=== PATIENT | female | born 1965 | race Caucasian/White ===

== ENCOUNTER → 2016-05-22 | Outpatient (CLI) | payer OTHER ==
[2014-05-31 15:05] VITALS: BP 95/58
[~2016-05-22] MED LIST: ALPR0.25 PO; ASPI325T4 PO; ATOR20TA58 PO; LEVO50TA5 PO; OXYC-250 PO
[2016-05-22 16:44] LABS: BARBITURATES NEG (NEG); BENZODIAZEPINES NEG (NEG); CANNABINOIDS NEG (NEG); COCAINE NEG (NEG); METHADONE NEG (NEG); OPIATES POS (NEG); PHENCYCLIDINE NEG (NEG)
[2016-05-22 16:55] LABS: ETHANOL, URINE NEG (NEG)
[2016-05-22 17:07] LABS: CREATININE 0.9 mg/dL (0.6-1.0); GFR 66.3
== END | disposition home or self-care (01) ==
LOC: LAB 15:42
PROVIDERS: ATTEND Psychiatry & Neurology Neurology
DX: R20.2 Paresthesia of skin (principal)
CPT/HCPCS: 36415; 82550; 82565; 82947; 84443; 84520; 85651; G0481

== ENCOUNTER → 2016-07-04 | Outpatient (CLI) | payer OTHER ==
[2014-05-31 15:05] VITALS: BP 95/58
[~2016-07-04] MED LIST changes: +GADOBUTROL 7.5 MMOL/7.5 ML VIAL IV ONE
--- NOTE | 2016-07-04 11:34 | KCIC ---
PROCEDURE MRI abdomen with and without contrast. HISTORY Dilated common bile. Epigastric pain. TECHNIQUE MRI of the abdomen was performed for and after the intravenous administration of 5 milliliters Gadavist. Three-dimensional reconstructions of the biliary tree were performed. COMPARISON 06/25/2016. FINDINGS Nodules in the right lung base correspond with calcified granulomas and inflammatory change on prior CT. There are scattered small cysts in the kidneys. The spleen is not enlarged. The adrenal glands are not enlarged. There are scattered tiny arterially enhancing foci throughout the liver. These measure 5 millimeters or less. These are not seen on the later series or on T2. The scattered regions of vascular shunting are favored. There are no definitively suspicious hepatic lesions. The gallbladder is distended without surrounding inflammation. The common duct is dilated to 12 millimeters. It tapers at the ampulla with adequate distal obstructing lesion. The pancreatic duct is mildly dilated at 4 millimeters. There are no pancreatic parenchymal lesions. Stool throughout the colon is consistent with constipation. IMPRESSION - Many subcentimeter foci of arterial enhancement scattered throughout the liver are not seen on later series and most likely represent only small regions of vascular shunting. Benignity is strongly favored in the absence of known malignancy. A follow-up could be performed in 3-6 months if there is further concern. - Moderate extrahepatic biliary dilatation without a clear distal obstructing lesion. The distal pancreatic duct is mildly dilated. ERCP could assess for ampullary stenosis or tiny ampullary lesion. - Correlate for constipation. Electronically signed by: Douglas Logan (Jul 04, 2016 11:32:09)
== END | disposition home or self-care (01) ==
LOC: KCIC MRI 08:20
PROVIDERS: ATTEND Internal Medicine Gastroenterology
DX: K83.8 Other specified diseases of biliary tract (principal); R93.0 Abnormal findings on diagnostic imaging of skull and head, not elsewhere classified; R10.13 Epigastric pain
CPT/HCPCS: 74182; A9585

== ENCOUNTER → 2016-07-22 | Outpatient (CLI) | payer OTHER ==
[2014-05-31 15:05] VITALS: BP 95/58
[~2016-07-22] VITALS: Ht 165.1 cm; Wt 53.5 kg
[~2016-07-22] MED LIST changes: -GADOBUTROL 7.5 MMOL/7.5 ML VIAL IV ONE; +NORMAL SALINE IV ONE; +SINCALIDE IV ONE
--- NOTE | 2016-07-22 11:49 | RAD ---
EXAM: Nuclear hepatobiliary scan with ejection fraction. HISTORY: Abdominal pain/nausea. TECHNIQUE: Serial static images are obtained of the liver and biliary system in a frontal projection following IV administration of 5.5 mCi of technetium-99m Choletec. After filling of the gallbladder, 1.1 mcg of sincalide were infused over 30 minutes and dynamic imaging continued over this period. The gallbladder ejection fraction was calculated. FINDINGS: There is prompt hepatic clearance of tracer from the blood pool. There is homogeneous distribution throughout the liver. There is filling of the gallbladder and normal into the biliary system and small bowel. The common duct and intrahepatic biliary tree appear prominent consistent with biliary dilatation is seen on prior MRCP. The gallbladder ejection fraction is 25.8% (normal >35%). IMPRESSION: 1. Decreased gallbladder ejection fraction consistent with biliary dyskinesia. 2. Biliary dilatation is seen on prior MRCP.
== END | disposition home or self-care (01) ==
LOC: NM 06:53
PROVIDERS: ATTEND Internal Medicine Gastroenterology
DX: R10.9 Unspecified abdominal pain (principal); Z79.01 Long term (current) use of anticoagulants
CPT/HCPCS: 78226; 96374; 96375; A9537; J2805

== ENCOUNTER → 2017-02-24 | Outpatient (CLI) | payer OTHER ==
[2014-05-31 15:05] VITALS: BP 95/58
[~2017-02-24] MED LIST changes: -ASPI325T4 PO; +ASPI325T8 PO; +IOHEXOL 300 MG/ML 75 ML VIAL IV ONE; -NORMAL SALINE IV ONE; -OXYC-250 PO; +OXYC-328 PO; -SINCALIDE IV ONE
--- NOTE | 2017-02-24 09:17 | RAD ---
Indication liver lesions. Contrast imaging through the abdomen was performed. Oral contrast was not administered. IV contrast, approximately 75 cc of Omnipaque 300 was administered. Note is made of a previous examination 06/25/2016. Note is made of an MRCP 07/04/2016 and a hepatobiliary scan 07/22/2016. Interval cholecystectomy additionally noted. The lung bases are clear. No focal mass lesion or hepatic abnormality is seen. There is slight prominence of biliary radicles which is likely secondary to the postcholecystectomy state. Splenic granulomas are noted. There are tiny renal cysts. No adrenal pathology is seen. No pancreatic pathology is seen. No focal mass inflammatory process or acute finding in the abdomen is seen. Degenerative changes at L5-S1 are noted IMPRESSION: No acute finding seen in the abdomen. No hepatic pathology seen PQRS Compliance Statement: One or more of the following individualized dose reduction techniques were utilized for this examination: 1. Automated exposure control 2. Adjustment of the mA and/or kV according to patient size 3. Use of iterative reconstruction technique
== END | disposition home or self-care (01) ==
LOC: CT 08:41
PROVIDERS: ATTEND Family Medicine
DX: K76.89 Other specified diseases of liver (principal); K75.3 Granulomatous hepatitis, not elsewhere classified; I10 Essential (primary) hypertension; Z79.01 Long term (current) use of anticoagulants; Z87.891 Personal history of nicotine dependence
CPT/HCPCS: 74160; Q9967

== ENCOUNTER → 2018-09-03 | Outpatient (CLI) | payer OTHER ==
[2014-05-31 15:05] VITALS: BP 95/58
[~2018-09-03] MED LIST changes: -IOHEXOL 300 MG/ML 75 ML VIAL IV ONE; -OXYC-328 PO; +OXYC1TAB22 PO
[2018-09-03 15:41] LABS: BASO # 0.1 x10^3/uL (0.0-0.2); BASO % 1 % (0-3); EOS # 0.2 x10^3/uL (0.0-0.7); EOS % 3 % (0-3); HEMATOCRIT 44.4 % (36.0-47.0); HEMOGLOBIN 14.4 g/dL (12.0-15.5); LYMPH % 38 % (24-48); MEAN CORPUSCULAR HEMOGLOBIN 31 pg (25-35); MEAN CORPUSCULAR HGB CONC 32 g/dL (31-37); MEAN CORPUSCULAR VOLUME 96 fL (79-100); MONO # 0.5 x10^3/uL (0.0-1.1); MONO % 6 % (0-9); NEUT # 4.1 x10^3uL (1.8-7.7); NEUT % 52 % (31-73); PLATELET COUNT 179 x10^3/uL (140-400); RED BLOOD COUNT 4.63 x10^6/uL (3.50-5.40); RED CELL DISTRIBUTION WIDTH 16.2 % (11.5-14.5); WHITE BLOOD COUNT 7.9 x10^3/uL (4.0-11.0)
[2018-09-03 15:50] LABS: ALBUMIN 3.8 g/dL (3.4-5.0); ALBUMIN/GLOBULIN RATIO 1.1 (1.0-1.7); GFR 58.2; TOTAL BILIRUBIN 0.4 mg/dL (0.2-1.0); TOTAL PROTEIN 7.2 g/dL (6.4-8.2)
== END | disposition home or self-care (01) ==
LOC: LAB 15:08
PROVIDERS: ATTEND Psychiatry & Neurology Neurology
DX: G43.011 Migraine without aura, intractable, with status migrainosus (principal)
CPT/HCPCS: 36415; 80053; 85025; 85651

== ENCOUNTER → 2020-07-25 | Outpatient (CLI) | payer OTHER ==
[2020-04-07 10:41] VITALS: BP 99/43
--- NOTE | 2020-07-26 13:26 | RAD ---
EXAM: Bilateral digital screening mammogram with tomosynthesis. HISTORY: 55-year-old female presents for screening mammography. TECHNIQUE: Full-field digital craniocaudal and mediolateral oblique 2D and 3D tomosynthesis images of both breasts are obtained for evaluation. Computer aided detection was applied. COMPARISON: Right breast mammogram dated 11/23/2015. There is no mammogram of the left breast for bin fuchs. BREAST PARENCHYMAL DENSITY: Level C - Heterogeneously dense. FINDINGS: There is a biopsy clip within the anterior 10:00 position of the right breast. There is cir cumscribed nodular densities within the 5:00 position of the right breast centered approximately 3.5 cm from the nipple. This may be more conspicuous compared to the prior study due to differences in im aging technique. There is nodular density within the posterior 2:00 position of the left breast cente red approximately 8.5 cm from the nipple. There is no suspicious calcific lesion or architectural dis tortion within either breast. IMPRESSION: BI-RADS Category 0: Incomplete. Additional imaging needed. RECOMMENDATION: Further evaluation with a full field true lateral and spot compression views of left breast to assess nodularity at the posterior 2:00 position is recommended. Sonographic imaging of the left breast may also be performed if deemed indicated based on additional mammographic findings. Sonographic imaging of the right breast is also recommended to assess nodularity at the 5:00 position approximately 3.5 cm from the nipple. If your mammogram demonstrates that you have dense breast tissue, which could hide abnormalities, and if you have other risk factors for breast cancer that have been identified, you might benefit from s upplemental screening tests that may be suggested by your ordering physician. Dense breast tissue, i n and of itself, is a relatively common condition. This information is not provided to cause undue c oncern, but rather to raise your awareness and to promote discussion with your physician regarding th e presence of other risk factors, in addition to dense breast tissue. A report of your mammography re sults will be sent to you and your physician. You should contact your physician if you have any ques tions or concerns regarding this report. Mammography is a sensitive method for finding small breast cancers, but it does not detect them all a nd is not a substitute for careful clinical examination. A negative mammogram does not negate a clin ically suspicious finding and should not result in delay in biopsying a clinically suspicious abnorma lity. PQRS compliance statement - Patient information was entered into a reminder system with a target due date for the next mammogram. "Our facility is accredited by the [employer] Mammography [employer]." Electronically signed by: Janeth Landeros MD (07/26/2020 1:23 PM) [id number]
== END ==
LOC: MAMMO 08:21
PROVIDERS: ATTEND Family Medicine
DX: Z12.31 Encounter for screening mammogram for malignant neoplasm of breast (principal); N64.89 Other specified disorders of breast
CPT/HCPCS: 77063; 77067

== ENCOUNTER → 2020-08-10 | Outpatient (CLI) | payer OTHER ==
[2020-04-07 10:41] VITALS: BP 99/43
--- NOTE | 2020-08-10 10:25 | RAD ---
Examination: 1. Left digital diagnostic mammogram. 2. Limited left breast ultrasound. INDICATION: 55-year-old woman recalled from screening for nodular density in the posterior left 2:00 position approximately 8.5 cm from the nipple. COMPARISON: Bilateral mammogram of 07/25/2020 TECHNIQUE: 2-D CC spot compression views of the left breast in addition to spot compression left MLO views. A full-field left ML view was also obtained. A full-field ML view was reviewed with computer-aided detection. Targeted ultrasound of the lateral left breast was also performed in the area of mammographic interest. FINDINGS: Heterogeneously dense breast parenchyma. The questioned nodularity changed configuration in a pattern compatible with overlap of dense fibroglandular tissue. Targeted ultrasound of the lateral breast shows dense fibroglandular tissue with no suspicious masses or definite sonographic correlate to the area of nodularity. [employer] images were acquired at the left 2:00 position 8.5 cm from the nipple. Sonographic survey of the left axilla revealed no adenopathy or mass. IMPRESSION: Probably benign left breast fibroglandular tissue. Recommend six-month left diagnostic mammogram with possible ultrasound. BI-RADS Category 3 Probably benign findings Patient entered into a reminder system with target due date for next mammogram.
== END ==
LOC: MAMMO 09:07
PROVIDERS: ATTEND Family Medicine
DX: R92.8 Other abnormal and inconclusive findings on diagnostic imaging of breast (principal)
CPT/HCPCS: 76641; 77065

== ENCOUNTER → 2021-01-31 | Outpatient (CLI) | payer OTHER ==
[2020-04-07 10:41] VITALS: BP 99/43
--- NOTE | 2021-01-31 14:22 | RAD ---
EXAM: Left breast diagnostic mammogram with tomosynthesis; bilateral breast sonogram. HISTORY: 55-year-old female presents for follow-up evaluation of findings within both breasts demonst rate on a mammogram and sonogram performed 08/10/2020 and mammogram dated 07/25/2020. TECHNIQUE: Full-field digital craniocaudal and mediolateral oblique 2D and 3D tomosynthesis images of the left breast are obtained for evaluation. Computer aided detection was applied. Sonographic imagi ng of both breasts targeted to sites of mammographic findings was also performed. COMPARISON: 08/10/2020, 07/25/2020 BREAST PARENCHYMAL DENSITY: Level C - Heterogeneously dense. FINDINGS: The previously demonstrated asymmetry within the posterior 2:00 position of the left breast is slightly less conspicuous compared to the prior exam. There are additional areas of asymmetry and nodularity which are stable in appearance. There is no suspicious calcification or architectural dis tortion. Sonographic imaging of the left breast demonstrates no suspicious finding within the posterior 2:00 p osition to correspond with the region of nodular asymmetry. This favors a benign etiology such as an island of benign 5 glandular tissue. There are benign left axillary lymph nodes. Sonographic imaging of the right breast demonstrates a 5 mm circumscribed hypoechoic lesion at the 6: 00 position 3.5 cm from the nipple, likely corresponding with a similar sized circumscribed nodular d ensity at the 5:00 position demonstrated mammographically. The imaging appearance favors a complicate d cyst, fibroadenoma or lymph node. No additional lesion is seen. IMPRESSION: 1. No new suspicious mammographic or sonographic finding within the left breast. 2. 5 mm benign-appearing lesion within the 6:00 position of the right breast 3.5 cm from the nipple. 3. BI-RADS Category 3: Probably benign finding(s). Short term follow up with a right breast sonogram and bilateral mammogram in 6 months is recommended. This follow up interval corresponds with a previo usly established bilateral mammography interval. If your mammogram demonstrates that you have dense breast tissue, which could hide abnormalities, and if you have other risk factors for breast cancer that have been identified, you might benefit from s upplemental screening tests that may be suggested by your ordering physician. Dense breast tissue, i n and of itself, is a relatively common condition. This information is not provided to cause undue c oncern, but rather to raise your awareness and to promote discussion with your physician regarding th e presence of other risk factors, in addition to dense breast tissue. A report of your mammography re sults will be sent to you and your physician. You should contact your physician if you have any ques tions or concerns regarding this report. Mammography is a sensitive method for finding small breast cancers, but it does not detect them all a nd is not a substitute for careful clinical examination. A negative mammogram does not negate a clin ically suspicious finding and should not result in delay in biopsying a clinically suspicious abnorma lity. PQRS compliance statement - Patient information was entered into a reminder system with a target due date for the next mammogram. "Our facility is accredited by the [employer] Mammography [employer]." Electronically signed by: Janeth Landeros MD (01/31/2021 2:20 PM) [id number]
== END ==
LOC: MAMMO 13:05
PROVIDERS: ATTEND Family Medicine
DX: Z08 Encounter for follow-up examination after completed treatment for malignant neoplasm (principal)
CPT/HCPCS: 76641; 77065; G0279; 77061